=== PATIENT | male | born 1975 | race Hispanic/Latino ===

== ENCOUNTER 2021-01-10 00:22 | Emergency (ER) | payer BC ==
[2021-01-10] MEDS ORDERED: DiphenhydrAMINE HCL 50 MG/ML VIAL ONE (00:43)
[2021-01-10] MEDS ORDERED: SOLU-MEDROL 125MG VIAL ONE (00:43)
[2021-01-10] MEDS ORDERED: FAMOTIDINE 20MG VIAL IV ONE (00:44)
== END 2021-01-10 01:40 | disposition home or self-care (01) ==
LOC: EDH 00:22
DX: L50.0 Allergic urticaria (principal); E78.00 Pure hypercholesterolemia, unspecified
CPT/HCPCS: 96374; 96375; 99284; J1200; J2930; J3490